=== PATIENT | female | born 1960 | race Caucasian/White ===

== ENCOUNTER 2020-10-02 15:29 | Emergency (ER) | payer OTHER, SELFPAY ==
--- NOTE | ~2020-10-02 | XR_ITS ---
EXAMINATION: XR CHEST CLINICAL INFORMATION: Shortness of breath COMPARISON: None TECHNIQUE: Frontal view of the chest was obtained. FINDINGS: No significant abnormality is noted involving the heart, lungs, mediastinum, bony thorax or soft tissues. XR/XR chest 1V IMPRESSION: Unremarkable examination.
[2020-10-02 16:00] VITALS: BP 155/85; PULSE 64; RESP 16; TEMP 2.5; TEMP 36.5; O2SAT 97; BMI 29.8
[2020-10-02 17:50] LABS: MANUAL DIFF FLAG NO
[2020-10-02 17:53] LABS: Basophils Absolute Auto 0.1 X10*3/uL (0.0-0.2); Basophils Percent Auto 0.9 % (0-2); Eosinophils Absolute Auto 0.8 X10*3/uL (0.0-0.4); Eosinophils Percent Auto 11.5 % (0-4); Hemoglobin 13.4 g/dl (12.0-16.0); Imm Gran Abs Auto 0.02 X10*3/uL (0.00-0.03); Imm Gran Pct Auto 0.3 % (0.0-0.4); Lymphocytes Absolute Auto 2.9 X10*3/uL (1.2-4.9); Lymphocytes Percent Auto 42.1 % (20-40); Mean Corpuscular HGB Conc 31.9 g/dl (31.0-35.0); Mean Corpuscular Hemoglobin 26.8 pg (27.0-33.0); Mean Platelet Volume 10.7 fL (9.4-12.3); Monocytes Absolute Auto 0.6 X10*3/uL (0.1-1.2); Monocytes Percent Auto 8.4 % (2-11); Neutrophils Absolute Auto 2.5 X10*3/uL (2.0-8.3); Neutrophils Percent Auto 36.8 % (45-73); Platelet Count 235 X10*3/uL (160-400); Red Cell Distribution Width 12.5 % (11.0-16.0); White Blood Count 6.9 X10*3/uL (4.8-10.8)
[2020-10-02 18:17] LABS: Anion Gap 13 (12-20); Blood Urea Nitrogen 15 mg/dL (9-16); Calcium 9.7 mg/dL (8.4-10.2); Carbon Dioxide 25 mmol/L (22-29); Chloride 106 mmol/L (96-108); Creatinine Clr Calc Pharmacy 70.4; Estimated Glomerular Filt Rate > 60; Glucose Random 86 mg/dL (60-115); Potassium 4.3 mmol/L (3.3-5.1); Sodium 140 mmol/L (135-145)
--- NOTE | 2020-10-02 19:58 | ED_ITS ---
HPI - URI/Sore Throat General Chief Complaint: Upper Respiratory Symptoms Stated Complaint: cough,sob Source: patient Mode of arrival: ambulatory Limitations: no limitations History of Present Illness HPI Narrative: 60-year-old female presents with 1 week of upper respiratory symptoms, a nonproductive cough, postnasal drip, and sinus pressure. She does not report any fevers, chills, chest pain or pressure, palpitations, shortness of breath, shortness breath on exertion, abdominal pain, abdominal distention, nausea, vomiting, diarrhea, constipation, dysuria, hematuria, and edema. She does not report any sick contacts, and states to be fully vaccinated for COVID- 19. MD elicited complaint: sinus pain Onset (ago): week(s) (1) Consistency: constant Severity: moderate Description of mucous: clear Able to tolerate fluids by mouth: Yes Exacerbating factors: speaking Relieving factors: nothing Associated symptoms: rhinorrhea, nasal congestion and cough Treatments prior to arrival: cold medicine Related Data Previous Rx's Medication Instructions Recorded albuterol sulfate 2 puff INHALATION Q4-6H PRN #6.7 g 10/03/20 benzonatate [Tessalon Perles] 100 mg PO TID PRN #30 cap 10/03/20 codeine-guaifenesin 10 ml PO Q4-6H PRN 5 Days #473 ml 10/03/20 Allergies Allergy/AdvReac Type Severity Reaction Status Date / Time dexamethasone [From DECADRON] AdvReac Intermediate ITCHING Verified 10/02/20 22:50 Review of Systems Review of Systems: Constitutional: positive Fever, positive Chills, positive fatigue, positive Malaise ENT/Mouth: positive sore throat, positive runny nose Eyes: No Discharge Cardiovascular: No Chest Pain, No SOB Respiratory: No Cough, No Sputum, No Wheezing, No Smoke Exposure, No Dyspnea Gastrointestinal: No Nausea, No Vomiting, No Diarrhea Genitourinary: no irregular bleeding, No Dysuria, No Urinary Frequency, No Hematuria, No Urinary Incontinence, No Urgency, No Flank Pain, Musculoskeletal: positive Myalgia Skin: No rash Neuro: No Headache Yes all other systems are reviewed and are negative [facility] Social History Social History Advance Directives: No Patient : No Physical Exam Vital Signs: Vital Signs: Last Vital Signs Temp 97.8 F 10/02/20 22:00 Pulse 61 10/02/20 22:33 Resp 18 10/02/20 22:00 BP 140/77 H 10/02/20 22:00 Pulse Ox 97 10/02/20 22:00 Body Mass Index 29.8 Appearance: Alert. Oriented X3. No acute distress. Eyes: Pupils equal, round and reactive to light. ENT: Pharynx normal. Neck: Normal inspection. Neck supple. CVS: Normal heart rate and rhythm. Pulses normal. Respiratory: Cough, No respiratory distress. Lung sounds clear to auscultation all lobes. Abdomen: Soft and nontender. Skin: Skin warm and dry. Normal skin color. Normal skin turgor. Extremities: No lower extremity edema. Neuro: No motor deficit. No sensory deficit. Course Course Course Narrative: 60-year-old female presents with upper respiratory symptoms for about a week. Patient appears nontoxic, is afebrile, able to speak in complete sentences. Will order Tessalon, Robitussin, and order COVID and per tussis testing. Patient is a school vocational educator. COVID is negative, pertussis is pending. Chest x-ray is negative. Lab values are unremarkable. Patient is still continuing to cough, will give albuterol and lidocaine. Patient stated cough has improved, will discharge home with albuterol, Tessalon, Hycodan. Patient verbalized understanding of and agrees to plan of care discharge home. MDM - URI/Sore Throat Differential Diagnosis Differential diagnosis: Likely upper respiratory infection, viral infection, bronchitis, influenza and pharyngitis Medical Records Attestation: I reviewed the patient's medical records. Lab Data Attestation: I reviewed the patient's lab results. Result diagrams: 10/02/20 17:35 10/02/20 17:35 Labs: Lab Results 10/02/20 10/02/20 10/02/20 Range/Units 17:35 17:35 21:12 WBC 6.9 (4.8-10.8) X10*3/uL RBC 5.00 (4.20-5.50) X10*6/uL Hgb 13.4 (12.0-16.0) g/dl Hct 42.0 (37-47) % MCV 84.0 (80-98) fL MCH 26.8 L (27.0-33.0) pg MCHC 31.9 (31.0-35.0) g/dl RDW 12.5 (11.0-16.0) % Plt Count 235 (160-400) X10*3/uL MPV 10.7 (9.4-12.3) fL Immature Gran % (Auto) 0.3 (0.0-0.4) % Neut % (Auto) 36.8 L (45-73) % Lymph % (Auto) 42.1 H (20-40) % Jack % (Auto) 8.4 (2-11) % Eos % (Auto) 11.5 H (0-4) % Baso % (Auto) 0.9 (0-2) % Lymph # (Auto) 2.9 (1.2-4.9) X10*3/uL Jack # (Auto) 0.6 (0.1-1.2) X10*3/uL Eos # (Auto) 0.8 H (0.0-0.4) X10*3/uL Baso # (Auto) 0.1 (0.0-0.2) X10*3/uL Abs Immat Gran (auto) 0.02 (0.00-0.03) X10*3/uL Absolute Neuts (auto) 2.5 (2.0-8.3) X10*3/uL Absolute Nucleated RBC 0.000 (0.0-0.012) X10*3/uL Nucleated RBC % (auto) 0.0 (0.0-0.2) /100WBC Sodium 140 (135-145) mmol/L Potassium 4.3 (3.3-5.1) mmol/L Chloride 106 (96-108) mmol/L Carbon Dioxide 25 (22-29) mmol/L Anion Gap 13 (12-20) BUN 15 (9-16) mg/dL Creatinine 0.82 (0.5-1.4) mg/dL Estim Creat Clear Calc 70.4 Estimated GFR > 60 Random Glucose 86 (60-115) mg/dL Calcium 9.7 (8.4-10.2) mg/dL Coronavirus (PCR) NEGATIVE (Negative) Influenza Type A (PCR) NEGATIVE (Negative) Influenza Type B (PCR) NEGATIVE (Negative) RSV RNA Qual (PCR) NEGATIVE (Negative) Imaging Data Chest x-ray: Attestation: I personally reviewed and interpreted this imaging study as follows: Radiologist's impression: EXAMINATION: XR CHEST CLINICAL INFORMATION: Shortness of breath COMPARISON: None TECHNIQUE: Frontal view of the chest was obtained. FINDINGS: No significant abnormality is noted involving the heart, lungs, mediastinum, bony thorax or soft tissues. XR/XR chest 1V IMPRESSION: Unremarkable examination. Discharge Plan Discharge Clinical Impression: Upper respiratory infection Qualifiers: URI type: unspecified URI Qualified Code(s): J06.9 - Acute upper respiratory infection, unspecified Patient Disposition: Home, Self-Care Instructions: Viral Syndrome (ED) Additional Instructions: You were evaluated for upper respiratory symptoms. Your COVID test is negative. Please use Tessalon Perles, viscous lidocaine, and albuterol as directed. Thank you for choosing this emergency department for evaluation. Please follow-up with primary care physician as needed. Return to the emergency department for any new, concerning, or worsening symptoms. Prescriptions: New codeine-guaifenesin 10-100 mg/5 mL liquid 10 ml PO Q4-6H PRN (Reason: cough) 5 Days Qty: 473 RF: 0 albuterol sulfate 90 mcg/actuation HFA aerosol inhaler 2 puff inhalation Q4-6H PRN (Reason: shortness of breath or wheezing) Qty: 6.7 RF: 0 benzonatate [Tessalon Perles] 100 mg capsule 100 mg PO TID PRN (Reason: cough) Qty: 30 RF: 0 Stand Alone Forms: Work/School Release Interventions: ED Discharge Assessment Last Done: 10/03/20 01:04 Discharge Date/Time: 10/03/20 01:04
[2020-10-02] MEDS: guaiFEN/Codeine SF 200/20/10ML 10 ML LIQUID PO (21:13)
[2020-10-02] MEDS: Benzonatate 100 MG CAPSULE 200 MG PO (21:13)
[2020-10-02 22:00] VITALS: BP 140/77; PULSE 77; RESP 18; TEMP 36.6; O2SAT 97
[2020-10-02 22:04] LABS: Influenza A PCR NEGATIVE (Negative); Influenza B PCR NEGATIVE (Negative); Resp Syncy Virus RNA Qual PCR NEGATIVE (Negative); SARS COV2 PCR INHOUSE NEGATIVE (Negative)
[2020-10-02] MEDS: Albuterol Sulfate (0.083%) 2.5 MG/3 ML VIAL.NEB INHALE ×2 (22:30→23:54)
[2020-10-02 22:33] VITALS: PULSE 61; O2SAT 94
[2020-10-02] MEDS: Lidocaine HCl Viscous 2 % 15 ML SOLUTION MUCOUS MEM (22:49)
[2020-10-03] MEDS: Albuterol Sulfate (0.083%) 2.5 MG/3 ML VIAL.NEB INHALE (00:20)
== END 2020-10-03 01:04 | disposition home or self-care (01) ==
PROVIDERS: Nurse Practitioner Family; Emergency Provider Internal Medicine
DX: J06.9 Acute upper respiratory infection, unspecified (principal); Z20.822 Contact with and (suspected) exposure to COVID-19; R50.9 Fever, unspecified
CPT/HCPCS: 0241U; 36415; 71045; 80048; 85025; 94640; 99284

== ENCOUNTER 2022-08-22 16:37 | Emergency (ER) | payer OTHER, SELFPAY ==
[2022-08-22 16:59] VITALS: BP 137/74; PULSE 76; RESP 18; TEMP 36; O2SAT 97; BMI 30.2
--- NOTE | 2022-08-22 16:59 | ED_ITS ---
HPI - URI/Sore Throat General Chief Complaint: Upper Respiratory Symptoms <Naya Lee NP - Last Filed: 08/22/22 17:00> Stated Complaint: Sore throat since friday <Naya Lee NP - Last Filed: 08/22/22 17:00> Time Seen by Provider: 08/22/22 17:05 <Naya Lee NP - Last Filed: 08/22/22 17:00> Source: patient <GUILLERMO Hines - Last Filed: 08/22/22 18:17> Mode of arrival: ambulatory <GUILLERMO Hines Last Filed: 08/22/22 18:17> Limitations: no limitations <GUILLERMO Hines Last Filed: 08/22/22 18:17> History of Present Illness HPI Narrative: 62 yo female presents to the ER evaluation of sore throat for the last 4 days. She reports the pain was initially on the left side, then moved to the right side and now is her whole throat. She has pain with swallowing. She also reports some dry cough. No fever or chills but she has had some body aches and generally not feeling well. She denies any chest pain, SOB, N/V/D or abdominal pain. No dental pain. No neck swelling. <GUILLERMO Hines - Last Filed: 08/22/22 18:17> MD elicited complaint: sore throat <GUILLERMO Hines Last Filed: 08/22/22 18:17> Onset (ago): day(s) (4) <GUILLERMO Hines Last Filed: 08/22/22 18:17> Consistency: progressively worsening <GUILLERMO Hines Last Filed: 08/22/22 18:17> Description of mucous: clear <GUILLERMO Hines Last Filed: 08/22/22 18:17> Able to tolerate fluids by mouth: Yes <GUILLERMO Hines Last Filed: 08/22/22 18:17> Exacerbating factors: swallowing <GUILLERMO Hines Last Filed: 08/22/22 18:17> Relieving factors: nothing <GUILLERMO Hines Last Filed: 08/22/22 18:17> Associated symptoms: myalgias, nasal congestion, sore throat and cough <GUILLERMO Hines - Last Filed: 08/22/22 18:17> Treatments prior to arrival: none <GUILLERMO Hines - Last Filed: 08/22/22 18:17> Related Data Home Medications: Previous Rx's Medication Instructions Recorded albuterol sulfate 90 mcg/actuation 2 puff inhalation Q4-6H PRN 10/03/20 aerosol inhaler shortness of breath or wheezing #6.7 grams benzonatate 100 mg capsule 100 mg PO TID PRN cough #30 caps 10/03/20 ([facility]) codeine 10 mg-guaifenesin 100 mg/5 10 ml PO Q4-6H PRN cough 5 days 10/03/20 mL oral liquid #473 mL <Naya Lee NP - Last Filed: 08/22/22 17:00> Allergies/Adverse Reactions: Allergies Allergy/AdvReac Type Severity Reaction Status Date / Time dexamethasone [From DECADRON] AdvReac Intermediate ITCHING Verified 10/02/20 22:50 <Naya Lee NP - Last Filed: 08/22/22 17:00> Review of Systems Review of Systems: Yes all other systems are reviewed and are negative <GUILLERMO Hines - Last Filed: 08/22/22 18:17> [facility] Social History Social History: Social History Advance Directives: No Advance Directives Information Provided: No <Naya Lee NP - Last Filed: 08/22/22 17:00> Physical Exam Vital Signs: Vital Signs: Last Vital Signs Temp 96.8 F 08/22/22 16:59 Pulse 76 08/22/22 16:59 Resp 18 08/22/22 16:59 BP 137/74 08/22/22 16:59 Pulse Ox 97 08/22/22 16:59 O2 Del Method Room Air 08/22/22 16:59 BMI result Body Mass Index 30.2 <Naya Lee NP - Last Filed: 08/22/22 17:00> Vital Signs: Last Vital Signs Temp 96.8 F 08/22/22 16:59 Pulse 76 08/22/22 16:59 Resp 18 08/22/22 16:59 BP 137/74 08/22/22 16:59 Pulse Ox 97 08/22/22 16:59 O2 Del Method Room Air 08/22/22 16:59 BMI result Body Mass Index 30.2 <GUILLERMO Hines - Last Filed: 08/22/22 18:17> Appearance: Alert. Oriented X3. No acute distress. Head: normocephalic, atraumatic. Eyes: Pupils equal, round and reactive to light. ENT: Posterior oropharynx with moderate generalized erythema, No tonsillar swelling or exudate. Normal TMs bilaterally. Neck: Normal inspection. Neck supple. No LAD CVS: Normal heart rate and rhythm. Pulses normal. Respiratory: No respiratory distress. Breath sounds normal. Skin: Skin warm and dry. Normal skin color. Normal skin turgor. No rashes. Extremities: No lower extremity edema. No joint swelling. Neuro/psych: Oriented X 3. No motor deficit. No sensory deficit. CN II-XII intact. Normal speech and cognition. <GUILLERMO Hines - Last Filed: 08/22/22 18:17> Course Course Course Narrative: This is rapid medical exam. Deferred additional HPI, ROS, PE to primary provider. 62-year-old female with a history of bipolar disorder presents ER with complaints of sore throat. Will obtain testing for flu, covid, rsv, strep. VSS <Naya Lee NP - Last Filed: 08/22/22 17:00> Medications Administered Discontinued Medications Generic Name Dose Route Start Last Admin Trade Name Freq PRN Reason Stop Dose Admin Ibuprofen 600 mg 08/22/22 17:31 08/22/22 17:40 Ibuprofen 600 Mg Tablet PO 08/22/22 17:32 600 mg ONCE ONE Administration Lidocaine HCl 15 ml 08/22/22 17:31 08/22/22 17:41 Lidocaine Hcl Viscous 2 % 15 Ml Solution MUCOUS MEM 08/22/22 17:32 15 ml ONCE ONE Administration <Naya Lee NP - Last Filed: 08/22/22 17:00> Medications Administered Discontinued Medications Generic Name Dose Route Start Last Admin Trade Name Freq PRN Reason Stop Dose Admin Ibuprofen 600 mg 08/22/22 17:31 08/22/22 17:40 Ibuprofen 600 Mg Tablet PO 08/22/22 17:32 600 mg ONCE ONE Administration Lidocaine HCl 15 ml 08/22/22 17:31 08/22/22 17:41 Lidocaine Hcl Viscous 2 % 15 Ml Solution MUCOUS MEM 08/22/22 17:32 15 ml ONCE ONE Administration <GUILLERMO Hines - Last Filed: 08/22/22 18:17> Medical Decision Making Medical Decision Making MDM Narrative: 62 yo female presenting with sore throat x4 days. Exam without swollen tonsils. Strep negative. Airway patent and tolerating PO. Most likely has viral pharyngitis. We discussed dx and management with supportive care and OTC meds. Stable for d/c home. <GUILLERMO Hines - Last Filed: 08/22/22 18:17> Differential Diagnosis Differential Diagnoses: The differential diagnosis associated with the presentation includes <GUILLERMO Hines - Last Filed: 08/22/22 18:17> strep, covid, flu, rsv, other viral syndrome, bronchitis, pneumonia, no evidence of peritonsillar abcsess or retropharyngeal abscess <GUILLERMO Hines - Last Filed: 08/22/22 18:17> Lab Data MDM Lab Attestation statement: I reviewed the patient's lab results. <GUILLERMO Hines - Last Filed: 08/22/22 18:17> Labs: Lab Results 08/22/22 08/22/22 Range/Units 17:08 17:08 Influenza Type A (PCR) NEGATIVE (Negative) Influenza Type B (PCR) NEGATIVE (Negative) RSV RNA Qual (PCR) NEGATIVE (Negative) SARS-CoV-2 RNA (RT-PCR) NEGATIVE (Negative) S. pyogenes GrpA SURAJ Negative (Negative) <Naya Lee NP - Last Filed: 08/22/22 17:00> Lab Results 08/22/22 08/22/22 Range/Units 17:08 17:08 Influenza Type A (PCR) NEGATIVE (Negative) Influenza Type B (PCR) NEGATIVE (Negative) RSV RNA Qual (PCR) NEGATIVE (Negative) SARS-CoV-2 RNA (RT-PCR) NEGATIVE (Negative) S. pyogenes GrpA SURAJ Negative (Negative) <GUILLERMO Hines - Last Filed: 08/22/22 18:17> External Record Review External record reviewed: Prior outpatient labs <GUILLERMO Hines - Last Filed: 08/22/22 18:17> Prescription Management I considered prescription management with: Pain Medication and Antibiotic <GUILLERMO Hines - Last Filed: 08/22/22 18:17> Critical Care Time Critical Care Time Critical Care Time: No <GUILLERMO Hines - Last Filed: 08/22/22 18:17> Discharge Plan Discharge Clinical Impression: Acute viral pharyngitis <Naya Lee NP - Last Filed: 08/22/22 17:00> Patient Disposition: Home, Self-Care <Naya Lee NP - Last Filed: 08/22/22 17:00> Instructions: Pharyngitis (ED) <Naya Lee NP - Last Filed: 08/22/22 17:00> Additional Instructions: You tested negative for Strep throat, COVID, Flu and RSV. Your symptoms are most likely due to another viral illness. Treatment is supportive care - rest and drink plenty of fluids Take over the counter Cold/Flu medications as needed for your symptoms Take ibuprofen and Tylenol for pain Use warm salt water gargles 3 times per day Recommend over the counter Chloraseptic spray and Cepacol lozenges as needed for sore throat. Follow up with your doctor. If you develop new or worsening symptoms call 911 or come back to the ER for further evaluation. <Naya Lee NP - Last Filed: 08/22/22 17:00> Prescriptions: No Action codeine-guaifenesin 10-100 mg/5 mL liquid 10 ml PO Q4-6H PRN (Reason: cough) 5 Days Qty: 473 0RF Rx Instructions: Dispense quantity sufficient albuterol sulfate 90 mcg/actuation HFA aerosol inhaler 2 puff inhalation Q4-6H PRN (Reason: shortness of breath or wheezing) Qty: 6.7 0RF benzonatate [Tessalon Perles] 100 mg capsule 100 mg PO TID PRN (Reason: cough) Qty: 30 0RF <Naya Lee NP - Last Filed: 08/22/22 17:00>
[2022-08-22 17:20] LABS: IDNOW Serial# 08D9AD1C; Strep A Nucleic Acid Negative (Negative)
[2022-08-22] MEDS: Ibuprofen 600 MG TABLET PO (17:40)
[2022-08-22] MEDS: Lidocaine HCl Viscous 2 % 15 ML SOLUTION MUCOUS MEM (17:41)
--- NOTE | 2022-08-22 17:46 | PC.NURSE ---
pt medicated per order for 6/10 throat pain
[2022-08-22 18:08] LABS: Influenza A PCR NEGATIVE (Negative); Influenza B PCR NEGATIVE (Negative); Resp Syncy Virus RNA Qual PCR NEGATIVE (Negative); SARS COV2 PCR INHOUSE NEGATIVE (Negative)
== END 2022-08-22 18:33 | disposition home or self-care (01) ==
PROVIDERS: Nurse Practitioner Family; Emergency Provider Emergency Medicine
DX: J02.9 Acute pharyngitis, unspecified (principal); M79.10 Myalgia, unspecified site; R05.9 Cough, unspecified; Z20.822 Contact with and (suspected) exposure to COVID-19; Z20.828 Contact with and (suspected) exposure to other viral communicable diseases; Z79.899 Other long term (current) drug therapy
CPT/HCPCS: 0241U; 87651; 99283